=== PATIENT | male | born 1935 | race Caucasian/White ===

== ENCOUNTER 2016-12-09 19:02 | Emergency (ER) | payer MEDICARE, BC ==
[~2016-12-09] VITALS: Ht 182.9 cm; Wt 71.7 kg
[~2016-12-09 19:02] MED LIST: ASPIRIN81 MG PO; METOPROLOL50 MG PO; PRILOSEC40 MG PO; SYNTHROID 0.1M0.1 MG PO; VITAMIN B121 TA1 PO; VITAMIN D400 I1 PO
--- OUTSIDE RECORDS SUMMARY | 2016-12-09 19:19 | External Medical Summary Rpt | CCD ---
Author Author [employer] Organization [employer] Address Unknown Phone Unavailable Purpose Continuity of Care Document - through 2016
--- OUTSIDE RECORDS SUMMARY | 2016-12-09 19:19 | External Medical Summary Rpt | CCD ---
Author Author , JOSE MARIA MOISE Address Unknown Phone [email or web address] Purpose Continuity of Care Document - through 2016
--- OUTSIDE RECORDS SUMMARY | 2016-12-09 19:19 | External Medical Summary Rpt | CCD ---
Author Author , JOSE MARIA MOISE Address Unknown Phone [email or web address] Purpose Continuity of Care Document - through 2016
--- OUTSIDE RECORDS SUMMARY | 2016-12-09 19:20 | External Medical Summary Rpt | CCD ---
Demographics Preferred Language Croatian Marital Status Unknown Anabaptism Affiliation Unknown Race Unknown Ethnic Group Unknown Author Author , JOSE MARIA MOISE Address Unknown Phone jose Immunization Unable to retrieve immunization data due to connection failure with Immunization Registry. Please try again later.
--- OUTSIDE RECORDS SUMMARY | 2016-12-09 19:20 | External Medical Summary Rpt | CCD ---
Demographics Preferred Language Frisian Marital Status Unknown Holiness Affiliation Unknown Race Unknown Ethnic Group Unknown Author Author , JOSE MARIA MOISE Address Unknown Phone jose Immunization Unable to retrieve immunization data due to connection failure with Immunization Registry. Please try again later.
--- NOTE | 2016-12-09 21:16 | Emergency Room Report ---
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 N Clinical Suspician of Infection? N Mental Status: 1 - Regular (Normal Baseline) Sepsis Risk:Possible Sepsis Risk Have you (or family members/close friends) recently traveled outside the [place]? N If Yes, where/when: Have you had exposure to infectious disease within the past month? N TB? Other? Specify: Source patient, RN notes reviewed, family, RN/MD Exam Limitations no limitations Comment This is a 81-year-old male patient brought in by ambulance after sustaining a fall, at home. The patient has been drinking liquor throughout the day, as he has a history of chronic alcoholism. He had a skin biopsy done (from the back of his neck) one week ago, by Dr. Nicholson, and he went back to see her today, as one of the surgical sites was sore, and swollen. Dr Nicholson advised the patient that she did not believe he had an abscess or seroma and started him on doxycycline, instead. The patient recalls standing up, at home, and starting to walk towards the kitchen, falling and hitting his face on kitchen floor and shortly afterwards passing out. He believes he might have hit his head, and even passing out. The patient also believes that the reason for him passing out is because he "has been drinking lots of alcohol today and taking the doxycycline on an empty stomach". At the time of arrival to the emergency room the patient denied any abdominal pain, or abdominal injury. ALLERGIES Coded Allergies: amoxicillin (Intermediate, I-RASH 06/10/15) Home Medications Reported Medications Levothyroxine Sodium (Synthroid 0.1MG) 0.1 MG PO DAILY CYANOCOBALAMIN (VITAMIN B-12) (Vitamin B-12) 1 TAB PO DAILY CHOLECALCIFEROL (VITAMIN D3) (Vitamin D3) (Unknown Dose) PO DAILY History Medical History General Angina: No [place]: No Hypertension? No Hyperlipidemia? Yes CHF? No COPD? No Asthma? No Hernia? No Thyroid Problems? Yes CVA? No Seizures? No Diabetes? No UTI? No Stones? No GB Disease: No Hepatitis? No Cataracts? Yes Glaucoma? No TB? No Cancer? No Immunization Hx DT/Tetanus 1-4 YRS Flu REFUSES Pneumonia REFUSES Surgical Hx Previous Surgery?Y TONSILLECTOMY ELIE CATARACTS Family History Family Hx Diabetes No CAD No Hypertension No Hyperlipidemia No Cancer No TB No Social History Smoking Hx Smoker: Current Every Day Smoker Tobacco: Yes Type Cigarettes Packs/day 1 1/2 - 2 Packs Alcohol Alcohol: Yes Review of Systems All Other Systems Reviewed and Negative ENT other (facial injury). Skin lesions (upper lip laceration) Comment syncope Physical Exam Vital Signs Vital Signs Date Time Temp Pulse Resp B/P Pulse O2 O2 Flow FiO2 Ox Delivery Rate 12/10 0043 90 18 120/70 100 3 12/09 2334 93 18 107/70 94 3 12/09 2219 96 18 99/58 100 12/09 2018 86 18 90/60 95 12/09 1905 97.8 101 20 124/72 95 General Appearance moderate distress, cachetic, thin Eye Exam - bilateral eye normal exam, bilateral eye PERRL, bilateral eye other (normal fundi) Ear, Nose, Throat hearing grossly normal, normal pharynx, LEFT upper lip jagged laceration involving the vermilion border, with active venous bleeding, 3 cm long, sq Neck normal inspection, tender midline (vertebral midline tenderness) Respiratory Status Yes: trachea midline, chest symmetrical, tender on palpation (LEFT lower ribs). No: respiratory distress. Lung Sounds bilateral: normal breath sounds, lungs clear. 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 No Comment 22:30-case d/w Dr. Snyder, covering for Dr Hearn, advised of patient's presentation and findings, agreeable with admission. Plan is to continue IV hydration, repeat H/H, and, if dropping, to get a surgical consult in the morning. Dr. Grady also requested serial cardiac enzymes overnight. 23:00 - patient had a single episode of hypotension, tachycardia, dry heaving, and for the first time mentioned LEFT upper quadrant abdominal pain. At this time, given his vague complaints as well as his history of alcoholism, decision was made to send the patient for additional imaging studies, namely a CT scan PE protocol, as well as CT scan abdomen and pelvis with IV contrast only, trauma protocol. 01:15am-virtual radiology called with report directly into the emergency room, discussed with Dr. Hafsa Carson at 1:15am, advised that report will be available shortly, as the dictation system has broken down. I have taken verbal report of the CT scan findings from radiologist. Dr. Hafsa Carson advised that "patient has active hemorrhage within and around the large LEFT renal cyst, LEFT kidney." 01:20am-call initiated with [facility] transfer golden, guarding patient's need to be emergency transferred to trauma services. 01:30am-case discussed with Beryl, production control coordinator/sap integration architect with trauma, advised of the above, agreeable with transfer under Dr. Yun's name. Results/Orders Laboratory Tests 12/10/16 0030: Antibody Screen NEGATIVE, Miscellaneous Test NEGATIVE 12/09/16 4995: Creatine Kinase 70, CK-MB (CK-2) Rel Index 2.7, CK and CKMB Interp 1.9, Troponin I < 0.02, WBC 13.8 H, RBC 2.49 L, Hgb 8.3 L, Hct 25.8 L, MCV 103.9 H, RDW 14.4, Plt Count 237, MPV 8.5, Gran % 85.0 H, Gran # 11.8 H, Total Counted Pending, Lymphocytes % 9.2 L, Monocytes % 4.9, Eosinophils % 0.4, Basophils % 0.4, Neutrophils Pending, Lymphocytes (Manual) Pending, Lymphocytes # 1.3, Monocytes # 0.7, Eosinophils # 0.1, Basophils # 0.1, Platelet Estimate Pending, PUBS MCHC 32.3, MCH 33.6 H 12/09/16 2240: Stool Occult Blood NEGATIVE 12/09/161999: Creatine Kinase 74, CK-MB (CK-2) Rel Index 2.3, CK and CKMB Interp 1.7, Troponin I < 0.02 12/09/16 2000: B-Natriuretic Peptide 49 12/09/16 2000: Amylase 28, Lipase 128, D-Dimer 3840 *H 12/09/16 2000: Sodium 140, Potassium 3.7, Chloride 100, Carbon Dioxide 22, BUN 21 H, Creatinine 1.3, Estimated Creat Clear 47 L, Estimated GFR (MDRD) 53, Glucose 120 H, Calcium 9.2, Total Bilirubin 0.4, AST 52 H, ALT 29, Alkaline Phosphatase 63, Total Protein 6.1 L, Albumin 3.1 L, Globulin 3.0, Albumin/ Globulin Ratio 1.0 L, PT 10.0, INR 0.93, APTT 26.1, WBC 8.3, RBC 2.90 L, Hgb 9.5 L, Hct 29.6 L, MCV 101.9 H, RDW 14.5, Plt Count 264, MPV 9.1, Gran % 66.6 , Gran # 5.5, Lymphocytes % 24.5, Monocytes % 6.0, Eosinophils % 2.1, Basophils % 0.9, Lymphocytes # 2.0, Monocytes # 0.5, Eosinophils # 0.2, Basophils # 0.1, PUBS MCHC 32.1, MCH 32.7 H, Alcohols 86 Current Medication Orders Sig/Roseanne Start time Last Medication Dose Route Stop Time Status Admin Ceftriaxone Sodium 1 GM ONCE ONE 12/10 214 DCr 12/10 IM 12/10 Lidocaine HCl 0 ONCE ONE 12/10 214 CAN IM 12/11 215 Ondansetron HCl 4 MG ONCE ONE 12/10 214 DC 12/10 IV 12/11 215 021 Pantoprazole Sodium 80 MG ONCE ONE 12/10 214 DC 12/10 IV 12/11 215 021 Sodium Chloride 10 ML ONCE ONE 12/10 214 DC IV 12/11 215 Sodium Chloride 500 ML .STK-MED ONE 10/26 0215 DC IV Ondansetron HCl 0 .STK-MED ONE 12/10 212 DC .ROUTE Azithromycin 500 MG ONCE ONE 12/10 199 AC Sodium Chloride 250 ML IV 12/10 025 Lactated Ringer's 1,000 ML .[id number] 12/10 020 DC IV 12/10 1349 Sodium Chloride 10 ML PRN PRN 12/10 020 AC IV 12/11 0147 Sodium Chloride 10 ML PRN PRN 12/10 020 DC IV 12/11 0149 Sodium Chloride 100 ML .STK-MED ONE 12/10 153 DC IV Azithromycin 0 .STK-MED ONE 12/10 152 DC IV Ceftriaxone Sodium 0 .STK-MED ONE 12/10 152 DCr .ROUTE Pantoprazole Sodium 0 .STK-MED ONE 12/10 152 DC IV Sodium Chloride 100 ML .STK-MED ONE 12/11 151 DC IV Sodium Chloride 50 ML .STK-MED ONE 12/11 151 DC IV Ceftriaxone Sodium 1 GM ONCE ONE 12/10 0145 CANr Sodium Chloride 50 ML IV 12/10 213 Pantoprazole Sodium 80 MG ONCE ONE 12/105 CAN Sodium Chloride 100 ML IV 12/10 0244 Iopamidol 75 ML ONCE ONE 12/10 004 UNV 12/10 IV 12/10 004 0045 Sodium Chloride 10 ML ONCE ONE 12/10 44 UNV 12/10 IV 12/10 004 0045 Sodium Chloride 20 ML ONCE ONE 12/10 44 UNV 12/10 IV 12/10 004 0045 Sodium Chloride 20 ML ONCE ONE 12/10 44 UNV 12/10 IV 12/10 004 0045 Sodium Chloride 1,000 ML ONCE ONE 12/09 2229 CAN IV 12/09 2230 Sodium Chloride 1,000 ML .STK-MED ONE 12/10 2223 DC IV Diphtheria/Pertussis/ 0.5 ML ONCE ONE 12/09 2129 DC Tetanus Vacc IM 12/09 2130 Lidocaine HCl 0 .STK-MED ONE 12/09 2120 DC .ROUTE Sodium Chloride 1,000 ML .STK-MED ONE 12/09 2000 DC IV Acetaminophen 0 .STK-MED ONE 12/09 1946 DC PO Acetaminophen 650 MG ONCE ONE 12/09 1944 DC 12/09 PO 12/09 Orders Procedure Date/time Status DIET-NOTHING BY MOUTH 12/10 B Active IV SALINE LOCK 12/10 146 Active CULTURE, BLOOD 12/10 145 Active LACTIC ACID 12/10 144 Active CTA-CHEST 12/[address] ABD & PELVIS W/ CONTRAST 12/[address] ABD/PELVIS REQ 12/09 2332 Complete TYPE FOR CROSSMATCH 12/[address] CHEST W/PE PROTOCOL REQ 12/10 2331 Complete DIFFERENTIAL-WBC 12/09 2254 Active STOOL OCCULT BLOOD 12/09 2240 Complete CBC WITH AUTO DIFF 12/10 2235 Active CARDIAC ENZYMES 12/10 2235 Complete URINARY CATHETER INSERT 12/09 2234 Active D-DIMER 12/09 2234 Complete BRAIN NATRIURETIC PEPTIDE 12/09 2234 Complete URINALYSIS/COMPLETE 12/09 2233 Active PARTIAL THROMBOPLASTIN TIME 12/09 2233 Complete PROTHROMBIN TIME 12/09 2233 Complete LIPASE 12/09 2233 Complete AMYLASE 12/09 2233 Complete CARDIAC ENZYMES 12/09 2232 Complete CBC WITH AUTO DIFF 12/09 2116 Complete CHEM 12 PROFILE 12/09 2116 Complete ALCOHOL 12/09 2116 Complete 12 [facility] 12/[address] SINUS (MAX-FACIAL W/O CONT) 12/[address] HEAD W/O CONTRAST 12/[address] CERVICAL SPINE W/O CONT. 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 of ischemic chgs, no ectopy, normal QRS, normal WI, no EKG for comparison, non-spec. ST/Twave chgs, ST elevation, ST depression, LBBB, RBBB, ectopy, abnormal Q waves XRAY/CT/US XRAY/CT/US 1 CT head (without contrast) CT interpretation by discussed w/radiologist CT Results see virtual radiology report, no acute intracranial hemorrhage XRAY/CT/US 2 CT head (without contrast), sinus (maxillofacial bones) CT interpretation by discussed w/radiologist CT Results see virtual radiology report, no acute medical facial bones fractures XRAY/CT/US 3 CT C-spine CT interpretation by discussed w/radiologist CT Results normal/NAD (without contrast), see virtual radiology, no acute C- spine fracture XRAY/CT/US 4 CT chest (with iv contrast) CT interpretation by discussed w/radiologist CT Results see virtual radiology report, consistent with RIGHT lower lung consolidation versus infiltrate, RIGHT pleural effusion XRAY/CT/US 5 CT abdomen, pelvis CT interpretation by discussed w/radiologist (with IV contrast) CT Results abnormal Comment See radiologist's report from virtual radiology There is a 15.5x10.6x13.2 cm LEFT renal cyst with active bleeding, also blood seen originating from the LEFT renal parenchyma. There is axialization of blood within the LEFT abdomen LEFT renal cyst was 10 cm a year ago. Procedures Laceration/Wound Repair Laceration/Wound Repair Risks/benefits discussed with pt/guardian? Yes Tetanus status not up to date Wound Location face (upper lip) Wound Length (cm) 3 Wound's Depth, Shape sucutaneous tissue, irregular, flap(s) Wound Explored clean Risk of retained FB explained to pt/guardian? Yes Irrigated w/ Saline (ccs) 20 Wound Prep Betadine, Saline Anesthesia 1% Lidocaine, Local Volume Anesthetic (ccs) 20 Wound Debrided none Wound Repaired With sutures Suture Size/Type 4:0, Proline Layer Closure No Deep Layer Suture Size/Type 4:0, Proline Total Number Sutures 18 Sterile Dressing Applied No Departure Departure Time of Disposition 0134 Disposition DC/XFER from ER to T.. Hosp Clinical Impression Primary Impression: Intra abdominal hemorrhage Secondary Impressions: Alcoholism Anemia Qualifiers: Anemia type: unspecified type Qualified Code: D64.9 - Anemia, unspecified Blunt abdominal trauma Qualifiers: Encounter type: initial encounter Qualified Code: S39.81XA - Other specified injuries of abdomen, initial encounter Elevated d-dimer Facial contusion Qualifiers: Encounter type: initial encounter Qualified Code: S00.83XA - Contusion of other part of head, initial encounter Gastritis Qualifiers: Gastritis type: alcoholic Chronicity: acute Gastritis bleeding: without bleeding Qualified Code: K29.20 - Alcoholic gastritis without bleeding Laceration of vermilion border of upper lip without complication Qualifiers: Encounter type: initial encounter Qualified Code: S01.511A - Laceration without foreign body of lip, initial encounter Leukocytosis Qualifiers: Leukocytosis type: unspecified Qualified Code: D72.829 - Elevated white blood cell count, unspecified Macrocytosis Pleural effusion, right Pneumonia Qualifiers: Pneumonia type: due to unspecified organism Laterality: right Lung location: lower lobe of lung Qualified Code: J18.1 - Lobar pneumonia, unspecified organism Renal cyst, left Renal hemorrhage, left Condition STABLE ED Critical Care Critical Care Yes Time spent 135-164 min Vital system(s) involved: Circulatory Failure, Shock (Hemorrhagic) I was present at bedside for Coordinating pt's care, Interpreting EKGs/Strips , During my initial exam, Reviewing lab results, Reviewing old records, Discussing pt condition, For re-examinations, Examining radiographs If Critical Care minutes are documented, the time involved in the performance of seperately reportable procedures was not counted toward critical care time documented. I directly delivered medical care to this critically ill and/or injured patient. Timely evaluation and treatment was necessary to address the significant organ system(s) dysfunction present in this patient. at [id number]
[2016-12-09 21:38] LABS: LYMPH % 24.5 % (10-50)
[2016-12-09 21:48] LABS: HEMOGLOBIN 9.5 g/dL (14.1-18.0)
[2016-12-09 23:05] LABS: LYMPH # 1.3 K/mm3 (0.7-4.5); LYMPH % 9.2 % (10-50)
[2016-12-09 23:10] LABS: HEMOGLOBIN 8.3 g/dL (14.1-18.0)
[2016-12-09 23:36] LABS: STOOL OCCULT BLOOD NEGATIVE (NEG)
[2016-12-10 01:37] LABS: ABO BLOOD TYPE A; RH BLOOD TYPE NEGATIVE
[2016-12-10 03:22] LABS: NEUTROPHILS 97 % (42-76)
[2016-12-10 03:41] VITALS: BP 120/70
--- NOTE | 2016-12-10 06:03 | RADIOLOGY REPORT PS360 ---
CT ABD PELVIS W/ CONTRAST CLINICAL INDICATION: Abdominal pain, trauma with abdominal pain and vomiting with syncope and anemia, history of renal mass SYNCOPE, ANEMIA ORDERING PHYSICIAN: Rahul Wilson MD PATIENT AGE: 81 years COMPARISON: 06/20/2015 TECHNIQUE: Axial images obtained with sagittal and coronal reformats. PROCEDURE: Oral Contrast: None IV Contrast: 60 mL Isovue-370 performed in conjunction with the chest CT. FINDINGS: Lower thorax: Peripheral right basilar consolidation with small right effusion ABDOMEN: Liver: No masses or biliary dilatation. Gallbladder: Nondistended. No radio opaque stones. Pancreas: No masses or peripancreatic fluid collections. Spleen: Unremarkable. Adrenals: Unremarkable Kidneys/ureters: The right kidney is unremarkable. There is a known large complex left renal cyst with rim calcification. The total size of the large complex cyst now measures 15 cm transverse, 13 cm AP, and 14 cm cephalad to caudad with additional superior component measuring 4.5 x 3.7 cm. Previously the left renal mass measures 11 cm AP, 13 cm transverse, and 10 cm cephalad to caudad to the superior component at 4 cm. There is increasing heterogeneous density of the left renal cyst with moderate stranding of the perinephric fat. There is some posterior ligament of contrast within the cyst consistent with active bleeding. The anterior medial wall of the large cyst. Disrupted with perinephric and paranephric hemorrhage. The adjacent renal parenchyma may be disrupted as well. The kidneys now slightly displaced anteriorly and superiorly. Blood lies along the left paracolic gutter and extends down into the pelvis. Stomach bowel: Nondistended. No obvious mass or thickening. Diverticulosis of the colon without diverticulitis. Appendix: No evidence of appendicitis. PELVIS: Reproductive: Unremarkable Bladder: Nondistended. No obvious stones or masses. ABDOMEN & PELVIS: Peritoneum: No free air. Considerable stranding of the peritoneal fat adjacent to the perinephric hematoma Lymph nodes: No enlarged lymph nodes apparent. Vasculature: No evidence of abdominal aortic aneurysm. No retroperitoneal hemorrhage evident. Bones: No acute fracture IMPRESSION: 1. Active hemorrhage within and around the large left complex renal cyst in left kidney as described above. This cyst appears disrupted medially and may extend into the renal parenchyma. 2. Right basilar consolidation/atelectasis/fibrosis with effusion
--- NOTE | 2016-12-10 06:15 | RADIOLOGY REPORT PS360 ---
CT HEAD W/O CONTRAST HISTORY: Headache, laceration, contusion following injury FALL ORDERING PHYSICIAN: Elina Salguero MD PATIENT AGE: 81 years COMPARISON: None TECHNIQUE: Axial images obtained without contrast. Brain and bone windows reviewed. FINDINGS: No midline shift, mass effect, intracranial hemorrhage, hydrocephalus, or extra-axial fluid collection is evident. There is atrophy with chronic periventricular ischemic gliotic change. The calvarium has an unremarkable appearance. No mastoid effusion. An air-fluid level right maxillary sinus. Please see facial CT report for further description.. IMPRESSION: 1. No acute intracranial findings. 2. Involutional changes of age. 3. Air-fluid level right maxillary sinus.
--- NOTE | 2016-12-10 06:20 | RADIOLOGY REPORT PS360 ---
CT CERVICAL SPINE W/O CONT INDICATION: Neck pain following injury FALL ORDERING PHYSICIAN: Elina Salguero MD PATIENT AGE: 81 years COMPARISON: None TECHNIQUE: Axial images are obtained without contrast. Sagittal and coronal reformatted images are reviewed as well. FINDINGS: Normal alignment. No acute fracture or dislocation. There is degenerative disc disease at C5-C6 and C6-C7 with multilevel mild facet and uncovertebral hypertrophy. Incidental vascular calcifications are noted. No acute finding in the lung apices. There is an air-fluid level in the right maxillary sinus. IMPRESSION: 1. No acute fracture. 2. Cervical spondylosis. 3. Air-fluid level right maxillary sinus
--- NOTE | 2016-12-10 06:23 | RADIOLOGY REPORT PS360 ---
CT SINUS (MAX-FACIAL W/O CONT) CLINICAL INDICATION: Facial pain following injury, facial laceration FALL ORDERING PHYSICIAN: Elina Salguero MD PATIENT AGE: 81 years COMPARISON: None TECHNIQUE:Axial, sagittal, and coronal images are generated and reviewed without contrast COMPARISON: None FINDINGS:There is mild soft tissue swelling along the right eyelid. There is an air-fluid level in the right maxillary sinus. Mild mucosal thickening is present in the left maxillary sinus and in the ethmoid sinuses. There is mild soft tissue swelling in the left supraorbital region medially and in the nasal area. No acute fracture or dislocation is evident. There is a small amount soft tissue gas along the left nasal soft tissues. IMPRESSION: 1. No acute fracture. 2. Sinusitis. 3. Soft tissue swelling in the nasal area, left periorbital region, and right eyelid region consistent with contusions.
--- NOTE | 2016-12-11 08:58 | RADIOLOGY REPORT PS360 ---
CTA-CHEST HISTORY: SYNCOPE, ELEVATED D-DIMER ORDERING PHYSICIAN: Rahul Wilson MD PATIENT AGE: 81 years TECHNIQUE: Helical acquisition obtained following the bolus administration of 60 mL of Isovue 370 followed by a saline bolus. Axial, sagittal, and coronal reformatted images are generated and reviewed. COMPARISON: None FINDINGS: The lung apices are excluded on the exam. PULMONARY ARTERIES:No pulmonary embolus evident. AORTA:No evidence of dissection. Minimal dilatation of the ascending aorta at 4.3 cm LUNGS:Right basilar consolidation versus fibrosis/atelectasis. Small right pleural effusion. Old calcified granulomas in both lungs. PLEURAL SPACES:Small right pleural effusion HEART:Unremarkable. Normal heart size. No significant pericardial effusion. Coronary artery calcifications are present MEDIASTINAL AND HILAR STRUCTURES:No mediastinal or hilar mass evident. No dominant adenopathy. BONY STRUCTURES:Multiple old right-sided rib fractures LYMPH NODES:No enlarged lymph nodes evident UPPER ABDOMEN:CT abdomen pelvis CT report IMPRESSION: 1. No evidence of pulmonary embolus or aortic dissection. 2. There is peripheral consolidation/pneumonia versus atelectasis or fibrosis in the right lung base laterally with small right effusion. Consider follow-up to confirm stability. 3. Mild dilatation of the ascending aorta at 4.3 cm. 4. Coronary artery disease
== END 2016-12-10 02:45 | disposition short-term general hospital (02) ==
LOC: ER 19:02
PROVIDERS: Emergency Medicine
PROC: 0CQ0XZZ Repair Upper Lip, External Approach (ICD-10-PCS; principal; 2016-12-09)
DX: S01.511A Laceration without foreign body of lip, initial encounter (principal); S00.83XA Contusion of other part of head, initial encounter; D72.829 Elevated white blood cell count, unspecified; J18.1 Lobar pneumonia, unspecified organism; S39.81XA Other specified injuries of abdomen, initial encounter; F17.210 Nicotine dependence, cigarettes, uncomplicated; F10.10 Alcohol abuse, uncomplicated; Z88.1 Allergy status to other antibiotic agents; E78.5 Hyperlipidemia, unspecified; E03.9 Hypothyroidism, unspecified; K29.21 Alcoholic gastritis with bleeding; Z23 Encounter for immunization; Z79.899 Other long term (current) drug therapy; R06.02 Shortness of breath; W01.10XA Fall on same level from slipping, tripping and stumbling with subsequent striking against unspecified object, initial encounter; Y92.010 Kitchen of single-family (private) house as the place of occurrence of the external cause
CPT/HCPCS: G0328; J2405; P9016; Q9967

== ENCOUNTER → 2017-01-19 | Outpatient (CLI) | payer MEDICARE, BC ==
[2017-01-19 16:16] LABS: LYMPH # 1.3 K/mm3 (0.7-4.5); LYMPH % 16.2 % (10-50)
[2017-01-19 16:33] LABS: HEMOGLOBIN 10.6 g/dL (14.1-18.0)
[2017-01-19 17:47] LABS: BUN 26 mg/dL (7-18)
[2017-01-19 17:48] LABS: GFR (ESTIMATED) 49 ML/MIN (>60)
== END ==
LOC: LAB 15:58
PROVIDERS: Family Medicine
DX: E03.9 Hypothyroidism, unspecified (principal); E53.8 Deficiency of other specified B group vitamins; J44.9 Chronic obstructive pulmonary disease, unspecified; Z12.5 Encounter for screening for malignant neoplasm of prostate
CPT/HCPCS: G0103